=== PATIENT | male | born 1950 | race Hispanic/Latino ===

== ENCOUNTER 2018-09-26 20:52 | Emergency (ER) | payer BC, MEDICARE ==
[~2018-09-26 20:52] MED LIST: ASPI-1005 PO; ATOR20TA65 PO; FENO160T16 PO; INSU3INS3 SQ; Losartan Potassium PO; METF-444 PO; METO25TA6 PO; SITA100T12 PO; TICA90TA PO
== END 2018-09-26 23:28 | disposition home or self-care (01) ==
LOC: EDH 20:52
DX: S86.811A Strain of other muscle(s) and tendon(s) at lower leg level, right leg, initial encounter (principal); I10 Essential (primary) hypertension; E11.9 Type 2 diabetes mellitus without complications; I25.2 Old myocardial infarction; Z95.1 Presence of aortocoronary bypass graft; X50.1XXA Overexertion from prolonged static or awkward postures, initial encounter; Y93.89 Activity, other specified; Y92.89 Other specified places as the place of occurrence of the external cause; Y99.8 Other external cause status
CPT/HCPCS: 93971

== ENCOUNTER 2020-01-12 06:27 | Day surgery (SDC) | payer MEDICARE ==
[~2020-01-12] VITALS: Ht 175.3 cm; Wt 101.6 kg
[~2020-01-12 06:27] MED LIST changes: -ASPI-1005 PO; -ATOR20TA65 PO; +ATOR40TA69 PO; +CLOP75TA14 PO; -FENO160T16 PO; +GABA-529 PO; +GLIP10TA9 PO; +INSREG SQ; +INSU100V12 SQ; -INSU3INS3 SQ; +OMEG-125 PO; -SITA100T12 PO; +SODIUM CHLORIDE 0.9% 1000ML 1,000 ML IV ONE; -TICA90TA PO
[2020-01-12 08:15] VITALS: BP 152/80
[2020-01-12] MEDS ORDERED: PROPOFOL 10 MG/ML 20ML VIAL IV ONE (09:30)
[2020-01-12] MEDS ORDERED: MIDAZOLAM HCL 1 MG/ML 2ML VIAL ONE (09:31)
[2020-01-12 09:40] VITALS: BP 103/48
--- NOTE | 2020-01-12 09:40 | NUR ---
Pt received Pt received from PACU via stretcher accompanied by STEFANIE Echols. Pt sleeping comfortably with o2 via face mask and oral airway in place. Pt in no distress.
[2020-01-12 09:45] VITALS: BP 95/51
[2020-01-12 09:50] VITALS: BP 102/53
[2020-01-12 09:55] VITALS: BP 111/68
[2020-01-12 10:10] VITALS: BP 118/75
--- NOTE | 2020-01-12 10:10 | NUR ---
D/C Pt prepared for discharge. Pt awake and alert and talkative. at bedside. Verbal and written instructions with information regarding follow up appointment. Also made them aware to hold Plavix for 72hrs. Both verbalized understanding. Pt was then taken to private vehicle via w/c. Very grateful for care.
== END 2020-01-12 10:20 ==
LOC: DAH 06:27 → ENDO 06:27
PROVIDERS: ATTEND Internal Medicine Gastroenterology
DX: R19.5 Other fecal abnormalities (principal); D12.8 Benign neoplasm of rectum; I10 Essential (primary) hypertension; E78.5 Hyperlipidemia, unspecified; K92.2 Gastrointestinal hemorrhage, unspecified; E11.9 Type 2 diabetes mellitus without complications; I25.10 Atherosclerotic heart disease of native coronary artery without angina pectoris; I25.2 Old myocardial infarction; Z95.1 Presence of aortocoronary bypass graft; Z95.5 Presence of coronary angioplasty implant and graft; Z98.890 Other specified postprocedural states
CPT/HCPCS: 36415; 45385; 82948; 93005; A4215; A4221; A4222; A4223; A4606; A4620; A4657; A4663; C9803; J2250; J2704; J7030; U0003; 45378

== ENCOUNTER → 2020-02-17 | Outpatient (CLI) | payer MEDICARE ==
[~2020-02-17] MED LIST changes: -SODIUM CHLORIDE 0.9% 1000ML 1,000 ML IV ONE
== END | disposition home or self-care (01) ==
LOC: SHCH 13:34
PROVIDERS: ATTEND Internal Medicine Cardiovascular Disease
DX: I35.8 Other nonrheumatic aortic valve disorders (principal); R01.1 Cardiac murmur, unspecified
CPT/HCPCS: 93306; 93356

== ENCOUNTER 2020-02-22 08:38 | Day surgery (SDC) | payer MEDICARE ==
[2020-02-19 16:11] LABS: BASOPHILS % (AUTO) 0.6 % (0.0-5.0); EOSINOPHILS % (AUTO) 1.4 % (0.0-8.0); HEMATOCRIT 41.6 % (42-54); LYMPHOCYTES % (AUTO) 32.7 % (21.0-51.0); MEAN CORPUSCULAR HEMOGLOBIN 28.4 pg (27.0-33.0); MEAN CORPUSCULAR HGB CONC 32.5 g/dL (32.0-36.0); MEAN CORPUSCULAR VOLUME 87.4 fL (79-99); MONOCYTES % (AUTO) 9.1 % (3.0-13.0); NEUTROPHILS % (AUTO) 55.9 % (40.0-77.0); PLATELET COUNT (AUTO) 181 K/uL (130-400); RED BLOOD CELL COUNT(AUTO) 4.76 MIL/uL (4.50-6.20); RED CELL DISTRIBUTION WIDTH 13.6 % (11.0-15.5); WHITE BLOOD COUNT (AUTO) 9.3 K/uL (4.8-10.8)
[2020-02-19 16:13] LABS: APPEARANCE,URINE Clear (CLEAR); BILIRUBIN,URINE Negative (NEGATIVE); COLOR,URINE Yellow (YELLOW); GLUCOSE, URINE (UA) 250 mg/dL (NEGATIVE); KETONES,URINE Negative (NEGATIVE); LEUKOCYTE ESTERASE ,URINE Negative (NEGATIVE); NITRATE,URINE Negative (NEGATIVE); OCCULT BLOOD,URINE Negative (NEGATIVE); PROTEIN,URINE Negative (NEGATIVE)
[2020-02-19 16:19] LABS: CREATININE 1.2 mg/dL (0.5-1.5); POTASSIUM 4.2 mmol/L (3.5-5.1)
[2020-02-19 16:21] LABS: INR 0.95 (0.85-1.15); PARTIAL THROMBOPLASTIN TIME 26.4 SEC (26.3-35.5); PROTHROMBIN TIME 10.3 SEC (9.6-11.6)
[2020-02-19 16:57] LABS: BACTERIA,URINE Rare /HPF (None Seen); RBC,URINE 0-1 /HPF (0-1); SQUAMOUS EPITHELIAL CELL,UR Rare /HPF (0-2); URIC ACID CRYSTALS,URINE Rare /LPF (None Seen); WBC,URINE 0-1 /HPF (0-1)
[2020-02-19 17:13] VITALS: BP 172/87
[2020-02-22] VITALS (21 sets, daily range): BP systolic 110–163; BP diastolic 63–87
[~2020-02-22] VITALS: Ht 175.3 cm; Wt 102.8 kg
[~2020-02-22 08:38] MED LIST changes: +SODIUM CHLORIDE 0.9% 500ML 500 ML IV SCH
--- NOTE | 2020-02-22 09:15 | NUR ---
PREOP RECEIVED PT IN NO DISTRESS. PT ORIENTED TO ROOM AND CALL LIGHT. PT CONNECTED TO CENTRAL SUPPLY TECH. WILL CONTINUE TO MONITOR PT
--- NOTE | 2020-02-22 09:30 | NUR ---
report called benjie naidu and reported pt took metformin and glipizide. also reported creat. of 1.2 new orders received.
[2020-02-22] MEDS ORDERED: SODIUM CHLORIDE 0.9% 1000ML 1,000 ML IV ONE (10:03)
[2020-02-22] MEDS ORDERED: LIDOCAINE HCL 2% 20ML ONE (10:45)
[2020-02-22] MEDS ORDERED: NITROGLYCERIN 2 MG/VIAL VIAL IV ONE (10:45)
[2020-02-22] MEDS ORDERED: IOHEXOL 350 MG/ML 100ML INFUS..BTL IV ONE (10:45)
[2020-02-22] MEDS ORDERED: HEPARIN SODIUM 1000UNIT/ML 10ML VIAL ONE (10:45)
[2020-02-22] MEDS ORDERED: FENTANYL CITRATE PF 50 MCG/1 ML 2ML VIAL ONE (10:45)
[2020-02-22] MEDS ORDERED: IOHEXOL-350 50ML VIAL IV ONE (10:45)
[2020-02-22] MEDS ORDERED: MIDAZOLAM HCL 1 MG/ML 2ML VIAL ONE (10:45)
[2020-02-22] MEDS ORDERED: SODIUM CHLORIDE 0.9% 1000ML 1,000 ML IV SCH (12:00)
[2020-02-22] MEDS ORDERED: NITROGLYCERIN 0.4 MG SL TAB SL PRN (12:00)
[2020-02-22] MEDS ORDERED: METOPROLOL TARTRATE 1 MG/ML 5ML VIAL IV PRN (12:00)
[2020-02-22] MEDS ORDERED: GLUCAGON 1MG KIT 1 MG ML IM PRN (12:00)
[2020-02-22] MEDS ORDERED: DEXTROSE 50%-WATER 50 ML DISP.SYRIN IV PRN (12:00)
--- NOTE | 2020-02-22 12:10 | NUR ---
post cath received pt and report from jose vanegas rn. pt in no distress, pt connected to cardiac technician. at bedside. will continue to monitor pt.
[2020-02-22] MEDS ORDERED: ATROPINE SULFATE 0.1 MG/ML 10 ML SYG IVP ONE (12:28)
--- NOTE | 2020-02-22 13:25 | NUR ---
pressure released pressure to rt groin and slight oozing noted so glory tobar rn applied pressure. pt tolerated it well
--- NOTE | 2020-02-22 13:45 | NUR ---
pressure pressure relased by glory tobar rn. no bleeding noted or hematoma. will continue to assess closely. pt instructed to call immediately if any bleeding noted.
--- NOTE | 2020-02-22 14:38 | NUR ---
sheath pulled removed approx 10mls of blood, no blood clots noted. sutures removed. pulled 6 english from rt groin, applied d stat to groin and pressure . pt tolerated procedure well..no active bleeding or hematoma noted. glory rogel. Addendum: 02/22/20 at 1453 by ANGIE DOMINIQUE RN RN sheath pulled at 1304
--- NOTE | 2020-02-22 14:42 | NUR ---
REPORT RECEIVED REPORT FROM STEFANIE ADAMS. PT DOING WELL. LYING IN BED. SITE TO RIGHT GROIN DRY AND INTACT. SOFT TO TOUCH. NO BLEEDING, OOZING NOTED TO SITE. AT BEDSIDE. INSTRUCTED ON IMPORTANCE OF REMAINING FLAT IN BED AND NOT LIFTING HEAD. BOTH VERBALIZED UNDERSTANDING.
[2020-02-22] MEDS ORDERED: INSULIN HUMULIN R 100 UNIT/ML 3ML SQ SCH (16:30)
--- NOTE | 2020-02-22 16:30 | NUR ---
DISCHARGE ORAL ANBD WRITTEN DISCHARGE INSTRUCTIONS GIVEN TO PT AND PTS ALONG WITH NEW PRESCRIPTIONS TO BE PICKED UP. SITE TO RIGHT GROIN SOFT TO TOUCH. NO BLEEDING, OOZING NOTED TO SITE. NO OTHER QUESTIONS AT THIS TIME.
== END 2020-02-22 17:05 | disposition home or self-care (01) ==
LOC: DAH 08:38
PROVIDERS: ATTEND Internal Medicine Cardiovascular Disease
DX: I25.110 Atherosclerotic heart disease of native coronary artery with unstable angina pectoris (principal); I25.710 Atherosclerosis of autologous vein coronary artery bypass graft(s) with unstable angina pectoris; I25.82 Chronic total occlusion of coronary artery; I25.2 Old myocardial infarction; I25.5 Ischemic cardiomyopathy; I11.0 Hypertensive heart disease with heart failure; I50.42 Chronic combined systolic (congestive) and diastolic (congestive) heart failure; E78.5 Hyperlipidemia, unspecified; E11.40 Type 2 diabetes mellitus with diabetic neuropathy, unspecified; E66.9 Obesity, unspecified; Z95.5 Presence of coronary angioplasty implant and graft; Z95.1 Presence of aortocoronary bypass graft; Z98.890 Other specified postprocedural states; Z83.3 Family history of diabetes mellitus; Z82.49 Family history of ischemic heart disease and other diseases of the circulatory system; Z68.33 Body mass index [BMI] 33.0-33.9, adult; Z79.01 Long term (current) use of anticoagulants; Z79.84 Long term (current) use of oral hypoglycemic drugs; Z79.899 Other long term (current) drug therapy
CPT/HCPCS: 36415; 71045; 80048; 81001; 82948 ×2; 85025; 85610; 85730; 93005; 93459; A4215; A4216; A4221; A4222; A4223 ×3; A4606; A4615; A4663; A6260; A6402; C1769; C1894 ×2; J1644; J2250; J3010; J3490 ×2; J7030; Q9965; Q9967 ×2; 96360; 96361; 99156; 99157; J0461

== ENCOUNTER 2020-09-13 05:53 | Day surgery (SDC) | payer MEDICARE ==
[~2020-09-13] VITALS: Ht 175.3 cm; Wt 99.8 kg
[~2020-09-13 05:53] MED LIST changes: -Losartan Potassium PO; -METF-444 PO; -SODIUM CHLORIDE 0.9% 500ML 500 ML IV SCH
[2020-09-13] MEDS ORDERED: 0.9%NACL 1000ML 1,000 ML IV ONE (06:14)
[2020-09-13 06:58] VITALS: BP 143/84
[2020-09-13] MEDS ORDERED: LIDOCAINE PF 100MG/5ML (2%) SYRINGE 5ML ONE (08:39)
[2020-09-13] MEDS ORDERED: PROPOFOL 10 MG/ML 20ML VIAL IV ONE ×2 (08:39→08:45)
[2020-09-13 08:55] VITALS: BP 107/57
[2020-09-13 09:10] VITALS: BP 105/59
[2020-09-13 09:25] VITALS: BP 113/68
== END 2020-09-13 09:25 | disposition home or self-care (01) ==
LOC: ENDO 05:53 → DAH 05:53 → ENDO 09:25
PROVIDERS: ATTEND Internal Medicine Gastroenterology
DX: R93.3 Abnormal findings on diagnostic imaging of other parts of digestive tract (principal); K21.00 Gastro-esophageal reflux disease with esophagitis, without bleeding; K29.70 Gastritis, unspecified, without bleeding; D49.0 Neoplasm of unspecified behavior of digestive system; I10 Essential (primary) hypertension; I25.10 Atherosclerotic heart disease of native coronary artery without angina pectoris; G47.30 Sleep apnea, unspecified; E11.9 Type 2 diabetes mellitus without complications; E78.5 Hyperlipidemia, unspecified; Z86.010 Personal history of colon polyps; R63.4 Abnormal weight loss; Z95.1 Presence of aortocoronary bypass graft; Z95.5 Presence of coronary angioplasty implant and graft; Z90.49 Acquired absence of other specified parts of digestive tract; Z98.890 Other specified postprocedural states; Z79.899 Other long term (current) drug therapy; Z20.822 Contact with and (suspected) exposure to COVID-19
CPT/HCPCS: 43239; 82948 ×2; 87635; A4215; A4221; A4222; A4223; A4606; A4620; A4657; A4663; J2001; J2704 ×2; J7030

== ENCOUNTER → 2020-11-02 | Outpatient (CLI) | payer MEDICARE | END | disposition home or self-care (01) | LOC: SHCH 13:58 | PROVIDERS: ATTEND Internal Medicine Cardiovascular Disease | DX: R06.09 Other forms of dyspnea (principal); I10 Essential (primary) hypertension; E66.9 Obesity, unspecified; E78.5 Hyperlipidemia, unspecified; E11.9 Type 2 diabetes mellitus without complications | CPT/HCPCS: 93306; 93356 ==

== ENCOUNTER 2020-11-15 06:33 | Day surgery (SDC) | payer MEDICARE ==
[~2020-11-15] VITALS: Ht 177.8 cm; Wt 99.8 kg
[2020-11-15] VITALS (17 sets, daily range): BP systolic 89–140; BP diastolic 49–83
[~2020-11-15 06:33] MED LIST changes: +0.9%NACL 1000ML 1,000 ML IV ONE
[2020-11-15] MEDS ORDERED: losartan PO (07:26)
[2020-11-15] MEDS ORDERED: SUCCINYLCHOLINE 200MG/10ML SYR ONE (08:41)
[2020-11-15] MEDS ORDERED: PROPOFOL 10 MG/ML 20ML VIAL IV ONE ×2 (08:41→09:08)
[2020-11-15] MEDS ORDERED: GLYCOPYRROLATE 1 MG/5 ML SYRINGE ONE (10:00)
== END 2020-11-15 11:05 | disposition home or self-care (01) ==
LOC: ENDO 06:33 → DAH 06:33 → ENDO 11:05
PROVIDERS: ATTEND Internal Medicine Gastroenterology
DX: K29.50 Unspecified chronic gastritis without bleeding (principal); Z20.822 Contact with and (suspected) exposure to COVID-19; K31.89 Other diseases of stomach and duodenum; K86.2 Cyst of pancreas; K21.00 Gastro-esophageal reflux disease with esophagitis, without bleeding; I10 Essential (primary) hypertension; I25.10 Atherosclerotic heart disease of native coronary artery without angina pectoris; I25.2 Old myocardial infarction; E11.9 Type 2 diabetes mellitus without complications; E78.5 Hyperlipidemia, unspecified; R63.4 Abnormal weight loss; Z79.899 Other long term (current) drug therapy; Z98.890 Other specified postprocedural states; Z95.1 Presence of aortocoronary bypass graft; Z86.010 Personal history of colon polyps; Z86.19 Personal history of other infectious and parasitic diseases; Z79.84 Long term (current) use of oral hypoglycemic drugs; Z90.49 Acquired absence of other specified parts of digestive tract; Z95.5 Presence of coronary angioplasty implant and graft; Z68.33 Body mass index [BMI] 33.0-33.9, adult
CPT/HCPCS: 43239; 43259; 82948 ×2; 87635; 88305; 88342; 93005; A4215 ×2; A4221; A4222; A4223; A4606; A4620; A4657; A4663; C9803; J0330; J2704 ×2; J3490; J7030 ×2; 43251